=== PATIENT | female | born 1985 | race Caucasian/White ===

== ENCOUNTER 2021-06-01 17:08 | Emergency (ER) | payer MEDICAID, OTHER ==
--- NOTE | 2021-06-01 17:47 | EDM.PDOC ---
ED HPI GENERAL MEDICAL PROBLEM - General Chief Complaint: Fever Stated Complaint: NOT FEELING WELL Time Seen by Provider: 06/01/21 17:50 Source of Information: Reports: Patient History Limitations: Reports: No Limitations - History of Present Illness INITIAL COMMENTS - FREE TEXT/NARRATIVE: Patient comes into the emergency department with complaints of fever, body aches, headache. Patient states that she started having symptoms approximately 24 hours ago. Patient returns into the emergency room prior without seeing any other individuals prior to the arrival. Patient has not taken any Tylenol or ibuprofen. Patient denies any chest pain, shortness of breath, dizziness, lightheadedness, gastrointestinal concerns. Patient states that she does have the body aches fevers and chills. Patient denies any recent COVID-19 exposure that she is aware of. She also denies any recent COVID-19 vaccines. Patient has no other health concerns or issues. Onset: Sudden Location: Reports: Other Quality: Reports: Ache, Throbbing Severity: Moderate Improves with: Reports: Rest Worsens with: Reports: Rest Associated Symptoms: Reports: No Other Symptoms Generalized Pain Score (Numeric/FACES): 8 - Related Data Allergies Allergy/AdvReac Type Severity Reaction Status Date / Time prednisone Allergy Hives Verified 06/01/21 17:23 Home Meds: Home Meds . [No Known Home Meds] 06/01/21 [History] Past Medical History - Past Health History Medical/Surgical History: Denies Medical/Surgical History Social & Family History - Tobacco Use Tobacco Use Status *Q: Current Every Day Tobacco User Years of Tobacco use: 15 Packs/Tins Daily: 0.8 ED ROS GENERAL - Review of Systems Review Of Systems: Comprehensive ROS is negative, except as noted in HPI. Constitutional: Reports: Fever, Chills, Malaise, Weakness, Fatigue, Decreased Appetite HEENT: Reports: No Symptoms Respiratory: Reports: Cough Cardiovascular: Reports: No Symptoms Endocrine: Reports: No Symptoms GI/Abdominal: Reports: No Symptoms : Reports: No Symptoms Musculoskeletal: Reports: No Symptoms Skin: Reports: No Symptoms Neurological: Reports: No Symptoms Psychiatric: Reports: No Symptoms Hematologic/Lymphatic: Reports: No Symptoms Immunologic: Reports: No Symptoms ED EXAM, GENERAL - Physical Exam Exam: See Below Exam Limited By: No Limitations General Appearance: Alert, WD/WN, No Apparent Distress Eye Exam: Bilateral Eye: EOMI, PERRL Head: Atraumatic, Normocephalic Neck: Normal Inspection, Supple, Non-Tender, Full Range of Motion Respiratory/Chest: No Respiratory Distress, Lungs Clear, Normal Breath Sounds Cardiovascular: Normal Peripheral Pulses, Regular Rate, Rhythm GI/Abdominal: Normal Bowel Sounds, Soft, Non-Tender Back Exam: Normal Inspection, Full Range of Motion Extremities: Normal Inspection, Normal Range of Motion, Non-Tender, Normal Capillary Refill Neurological: Alert, Oriented, Normal Cognition Psychiatric: Normal Affect, Normal Mood Skin Exam: Warm, Dry, Intact, Normal Color Course - Vital Signs Last Recorded V/S: Last Vital Signs Temp 38.4 C H 06/01/21 17:10 Pulse 87 06/01/21 17:10 Resp 16 06/01/21 17:10 BP 110/67 06/01/21 17:10 Pulse Ox 100 06/01/21 17:10 - Orders/Labs/Meds Orders: Active Orders 24 hr Category Date Time Status CORONAVIRUS COVID-19 RAPID [[facility]] Urgent Lab 06/01/21 17:17 Received Departure - Departure Time of Disposition: 18:00 Disposition: Home, Self-Care 01 Condition: Good Clinical Impression: COVID-19 - Discharge Information *PRESCRIPTION DRUG MONITORING PROGRAM REVIEWED*: Not Applicable *COPY OF PRESCRIPTION DRUG MONITORING REPORT IN PATIENT LC: Not Applicable Instructions: Things to Know about the COVID-19 Pandemic - CDC (12/13/2020), Fever, Adult, [id number], COVID-19: What to Do if You Are Sick - [facility] (09/28/2020) Referrals: PCP,None [Primary Care Provider] - Additional Instructions: 1. rest 2. increase your water intake 3. Continue all at home medications 4. Activity and diet as tolerated 5. Can take over the counter Tylenol for any pain or discomfort 6. Follow up with PCP if symptoms continue, return, or progress 7. Call with any questions or concerns Sepsis Event Note (ED) - Evaluation Sepsis Screening Result: Possible Sepsis Risk - Focused Exam Vital Signs: Vital Signs Temp Pulse Resp BP Pulse Ox 06/01/21 17:10 38.4 C H 87 16 110/67 100 - My Orders Last 24 Hours: My Active Orders 06/01/21 17:17 CORONAVIRUS COVID-19 RAPID [[facility]] Urgent - Assessment/Plan Last 24 Hours: My Active Orders 06/01/21 17:17 CORONAVIRUS COVID-19 RAPID [[facility]] Urgent Assessment:: 1. Covid-19 positive Plan: 1. Covid-19 positive 2. Patient and nursing staff was updated regarding the plan of care 3. Education provided the patient regarding activity, diet, rest, over-the- counter medication modalities, and follow-up care was provided 4. Patient and family are agreeable to the above plan of care 5. All questions and concerns were addressed with the patient and family prior to discharge
== END 2021-06-01 18:00 | disposition home or self-care (01) ==
LOC: VM.ED 17:08
DX: U07.1 COVID-19 (principal); Z88.8 Allergy status to other drugs, medicaments and biological substances; Z72.0 Tobacco use
CPT/HCPCS: 99283; 99284; U0002